=== PATIENT | female | born 1965 | race Caucasian/White ===

== ENCOUNTER 2018-04-14 09:58 | Day surgery (SDC) | payer OTHER ==
[~2018-04-14] VITALS: Ht 157.5 cm; Wt 79.8 kg
[2018-04-14] MEDS ORDERED: MIDAZOLAM 2 MG/2 ML VIAL ONE (11:54)
[2018-04-14] MEDS ORDERED: LIDOCAINE 2% 100 MG/5 ML UJET TP ONE (11:54)
[2018-04-14] MEDS ORDERED: fentaNYL 0.05 MG/ML VIAL ONE (11:54)
== END 2018-04-14 13:09 | disposition home or self-care (01) ==
LOC: MDS 09:58 → MMU 09:58 → MDS 13:09
PROVIDERS: ATTEND Internal Medicine Gastroenterology
DX: Z12.11 Encounter for screening for malignant neoplasm of colon (principal); D12.3 Benign neoplasm of transverse colon; I10 Essential (primary) hypertension; E78.00 Pure hypercholesterolemia, unspecified; E11.9 Type 2 diabetes mellitus without complications; E66.9 Obesity, unspecified; Z98.890 Other specified postprocedural states; Z90.710 Acquired absence of both cervix and uterus; Z79.899 Other long term (current) drug therapy; Z79.84 Long term (current) use of oral hypoglycemic drugs; Z68.32 Body mass index [BMI] 32.0-32.9, adult
CPT/HCPCS: 45385; 82948; J3010; J2250

== ENCOUNTER 2019-11-29 08:41 | Emergency (ER) | payer OTHER ==
[~2019-11-29] VITALS: Ht 157.5 cm; Wt 77.6 kg
[2019-11-29 08:47] VITALS: BP 161/80
--- NOTE | 2019-11-29 09:10 | NUR ---
C/O L SIDED FACIAL NUMBNESS X1 DAY ACCOMPANIED BY HEADACHE. DENIES PAIN. BILATERAL STRENGTH NOTED TO BUE/BLE. PARALYSIS NOTED TO L SIDE OF FACE. DECREASED NASOLABIAL FOLD NOTED TO L SIDE OF FACE. PUPILS PERRL. PT ALERT AND AWAKE, SPEECH IS CLEAR, PT AMBULATORY WITH STEADY GAIT. HX: DM RX: NONE
--- NOTE | 2019-11-29 09:11 | NUR ---
DR KRUSE AT BEDSIDE
[2019-11-29 09:22] VITALS: BP 144/87
--- NOTE | 2019-11-29 09:22 | NUR ---
Patient discharged with v/s stable. Written and verbal after care instructions given and explained REGARDING BELLS PALSY. Patient alert, oriented and verbalized understanding of instructions. Ambulatory with steady gait. All questions addressed prior to discharge. ID band removed. Patient advised to follow up with PMD. Rx of PREDNISONE AND VALACYCLOVIR HYDROCHLORIDE given. Patient educated on indication of medication including possible reaction and side effects. Opportunity to ask questions provided and answered. PT ISNTRUCTED THAT SHE CAN USE OTC EYE DROPS FOR EYE DRYNESS
== END 2019-11-29 09:22 | disposition home or self-care (01) ==
LOC: MED 08:41
DX: G51.0 Bell's palsy (principal); E11.9 Type 2 diabetes mellitus without complications; R03.0 Elevated blood-pressure reading, without diagnosis of hypertension; Z88.0 Allergy status to penicillin; Z90.49 Acquired absence of other specified parts of digestive tract
CPT/HCPCS: 99283

== ENCOUNTER 2021-06-13 20:11 | Inpatient (IN) | payer OTHER ==
[~2021-06-13] VITALS: Ht 157.5 cm; Wt 65.4 kg
[2021-06-13 20:18] VITALS: BP 123/73
--- NOTE | 2021-06-13 20:20 | NUR ---
PT BIBA FROM SNF FOR HYPOGLYCEMIA. PT BS WAS 36 ON SCENE. PT NOW AT BS OF 131. 0/10 PAIN. PATIENT ARRIVED WITH A PARSONS. PATIENT WOUNDS-- CHARTED AND TAKEN A PICTURE. PATIENT CAME IN FOR LOW BG ON SEEN 36. PATIENT LUNG SOUNDS HAS CRACKLES, DIMINISHED. PATIENT WAS AT [facility] AT THE END OF MAY. PATIENT ALSO HAD SURGICAL PROCEDURE IN . AAOX4-- BUT AT TIMES CAN GET CONFUSED. PMH- DM, ARF ALLERGIES: PENICILLINS
[2021-06-13] MEDS ORDERED: NACL 0.9% 1,000 ML IV SCH (20:35)
[2021-06-13] MEDS ORDERED: AZITHROMYCIN 500 MG in DEXTROSE 5% 250 ML IV ONE (20:35)
[2021-06-13] MEDS ORDERED: cefTRIAXone 1,000 MG in DEXT 5% MINI-BAG PLUS 50 ML IV ONE (20:35)
[2021-06-13] MEDS ORDERED: cefTRIAXone 1,000 MG VIAL ONE (20:51)
[2021-06-13] MEDS ORDERED: AZITHROMYCIN 500 MG INJ VIAL IV ONE (21:04)
--- NOTE | 2021-06-13 21:19 | NUR ---
XRAY AT BEDSIDE
[2021-06-13 21:51] LABS: EOSINOPHILS % (AUTO) 0.1 % (0.0-4.0); HEMATOCRIT 30.7 % (36-48); HEMOGLOBIN 10.2 g/dL (12.0-16.0); LYMPHOCYTES % (AUTO) 5.6 % (20.5-51.1); MEAN CORPUSCULAR HEMOGLOBIN 29 pg (27-31); MEAN CORPUSCULAR HGB CONC 33 g/dL (33-37); MEAN CORPUSCULAR VOLUME 88.6 fL (80-94); MONOCYTES # (AUTO) 1.6 K/uL (0.8-1.0); MONOCYTES % (AUTO) 8.5 % (1.7-9.3); NEUTROPHILS # (AUTO) 15.7 K/uL (1.8-7.7); NEUTROPHILS % (AUTO) 85.8 % (42.2-75.2); PLATELET COUNT (AUTO) 286 K/uL (140-450); RED BLOOD CELL COUNT(AUTO) 3.46 MIL/uL (4.20-5.40); RED CELL DISTRIBUTION WIDTH 14.2 % (11.6-13.7); WHITE BLOOD COUNT (AUTO) 18.3 K/uL (4.8-10.8)
[2021-06-13 22:12] LABS: ALBUMIN 2.8 g/dL (3.4-5.0); ANION GAP 14.4 (8-16); CARBON DIOXIDE 25.2 mmol/L (21-32); CREATININE 2.4 mg/dL (0.6-1.3); POTASSIUM 4.6 mmol/L (3.5-5.1); TOTAL BILIRUBIN 0.6 mg/dL (0.0-1.0)
[2021-06-13 22:13] LABS: BILIRUBIN,URINE NEGATIVE (NEGATIVE); BLOOD, URINE 3+ (NEGATIVE); COLOR,URINE YELLOW (YELLOW); LEUKOCYTE ESTERASE ,URINE 2+ (NEGATIVE); NITRITE, URINE POSITIVE (NEGATIVE); UGLUCOSE 2+ (NEGATIVE)
--- NOTE | 2021-06-13 22:18 | NUR ---
LAB REPORTED BUN 90 AND SODIUM 121
[2021-06-13 22:19] LABS: APPEARANCE,URINE CLOUDY (CLEAR)
--- NOTE | 2021-06-13 22:30 | NUR ---
ASSISTED ERMD WITH CENTRAL LINE. PATIENT TOLERATED WELL. SAFETY MEASURES ARE IN PLACE, WILL CONTINUE TO MONITOR PATIENT.
[2021-06-13 22:41] LABS: CKMB RELATIVE INDEX 1.3 (0.0-2.5); CREATINE KINASE MB 9.7 ng/mL (0-3.6)
--- NOTE | 2021-06-13 23:08 | NUR ---
PROVIDED PATIENT WITH JUICES AND CRACKERS
--- NOTE | 2021-06-13 23:22 | NUR ---
Patient noted to have existing wounds upon arrival to ER. Photos taken of wound and placed in chart. Wound covered with dressing. Physician informed.
--- NOTE | 2021-06-13 23:30 | NUR ---
PATIENT TO CT VIA [facility]
--- NOTE | 2021-06-13 23:42 | NUR ---
notified ERMD of decrease BP of 80s/40s. ERMD to move the cuffs around and wait another 5minutes to reassess BP
--- NOTE | 2021-06-13 23:55 | NUR ---
reported low BP of 89/34 to ERMD. physician to see patient, and start central line
[2021-06-14] MEDS ORDERED: NOREPINEPHRINE 4 MG in DEXTROSE 5% 250 ML IV ONE (00:10)
[2021-06-14] MEDS ORDERED: NOREPINEPHRINE 4 MG/4 ML VIAL IV ONE (00:26)
[2021-06-14] MEDS ORDERED: ONDANSETRON 4 MG/2 ML VIAL IVP PRN (01:25)
[2021-06-14] MEDS ORDERED: ACETAMINOPHEN 325 MG TAB PO PRN (01:25)
--- NOTE | 2021-06-14 01:25 | NUR ---
XRAY AT BEDSIDE
--- NOTE | 2021-06-14 01:35 | NUR ---
PERICARE DONE FOR PATIENT, PATIENT HAD A PING PONG BALL SIZE POOP- SEMI HARD. REPOSITIONED PATIENT ON LEFT SIDE. SAFETY MEASURES ARE IN PLACE, WILL CONTINUE TO MONITOR PATIENT
[2021-06-14] MEDS: NACL 0.9% 1,000 ML IV SCH ×3 (02:35→19:37)
--- NOTE | 2021-06-14 03:03 | NUR ---
REPOSITIONED PATIENT SUPINE PER PATIENT REQUEST. SAFETY MEASURES ARE IN PLACE, WILL CONTINUE TO MONITOR PATIENT
[2021-06-14 04:36] LABS: RBC,URINE 0-5 /HPF (0-5)
--- NOTE | 2021-06-14 05:00 | NUR ---
REPOSITIONED PATIENT ON RIGHT SIDE ON LOW FOWLERS. SAFETY MEASURES ARE IN PLACE, WILL CONTINUE TO MONITOR PATIENT
--- NOTE | 2021-06-14 07:00 | NUR ---
REFER TO IV SPREADSHEET FOR VS
--- NOTE | 2021-06-14 07:30 | NUR ---
Patient repositioned to left side in semi-fowlers. desk monitor in place. VSS; respirations even/unlabored. Bed locked in lowest position, side rails x2 for pt safety.
--- NOTE | 2021-06-14 07:40 | NUR ---
emptied mckeon catheter of 3000ml
--- NOTE | 2021-06-14 07:45 | NUR ---
Pt report given to Romulo LUU. Transfer of care at this time.
--- NOTE | 2021-06-14 07:45 | NUR ---
Report and continuation of care received from JUS Iraheta.
--- NOTE | 2021-06-14 08:45 | NUR ---
Patient resting in low-fowlers position; Levophed infusion continued @ 2mcg, VSS; respirations even/unlabored. Bed locked in lowest position, side rails x 2 for pt safety, call light in reach.
--- NOTE | 2021-06-14 08:51 | NUR ---
PATIENT HAS BEEN SCREENED AND CATEGORIZED MODERATE NUTRITION RISK. PATIENT WILL BE SEEN WITHIN 3-5 DAYS OF ADMISSION. 06/16/2021-06/18/[address] Addendum: 06/15/21 at [address] PATIENT HAS BEEN RESCREENED AND RE-CATEGORIZED HIGH NUTRITION RISK. PATIENT WILL BE SEEN WITHIN 1-2 DAYS OF ADMISSION. NUTRITION CONSULT AND REFERRAL RECEIVED ON 06/14/21 FOR PRESSURE ULCER, WOUNDS, AND DIABETES EDUCATION. 06/14/2021-06/15/[address]
[2021-06-14] MEDS ORDERED: NACL 0.9% 1,000 ML IV SCH (09:05)
[2021-06-14] MEDS ORDERED: CEFEPIME 1,000 MG in DEXTROSE 5% 100 ML IV SCH ×5 (09:08→21:00)
[2021-06-14] MEDS ORDERED: CEFEPIME 1,000 MG VIAL ONE ×3 (09:36→21:57)
--- NOTE | 2021-06-14 09:50 | NUR ---
Patient resting comfortably with both eyes open in semi-fowlers position. Manjeet () at bedside at this time. quality assurance monitor body in remains in place. Bed locked in lowest position, side rails x 2, call light in reach.
[2021-06-14] MEDS: ENOXAPARIN 30 MG/0.3 ML SYR SUBQ SCH (09:56)
--- NOTE | 2021-06-14 10:01 | NUR ---
NS 0.9% BOLUS initiated @ 0930 to IV R Forearm
[2021-06-14] MEDS ORDERED: DEXTROSE 50% 50 ML SYR IVP PRN (10:10)
[2021-06-14] MEDS ORDERED: INSULIN LISPRO SLIDING SCALE 100 UNITS/ML VIAL SUBQ PRN (10:10)
--- NOTE | 2021-06-14 11:21 | NUR ---
PATIENT REPOSITIONED TO LEFT SIDE IN SEMI-FOWLERS POSITION. CARDIAC MONTIOR REMAINS IN PLACE; VSS, RESPIRATIONS EVEN/UNLABORED. LEVOPHED CONTINUED @ 2MCG.
[2021-06-14] MEDS: BLOOD GLUCOSE MONITORING 1 DEV DEV FS SCH ×3 (11:50→21:00)
--- NOTE | 2021-06-14 13:30 | NUR ---
Levophed paused at this time to test patient tolerance. BP 116/56, HR 110, SpO2 100%, RR 16.
--- NOTE | 2021-06-14 13:45 | NUR ---
Patient V/S: BP 98/49, HR 118, SpO2 99% RR 14. Patient resumed on Levophed drip @ 2mcg/hr.
--- NOTE | 2021-06-14 13:58 | NUR ---
Call light answered; pt states arm pain. Patient repositioned onto right side in semi-fowlers position. ekg monitor tech and Levophed drip continued @ 2mcg/hr. VSS; respirations even/unlabored. Patient denies any pain or nausea. Oral temperature 98.7. Bed locked in lowest position, side rails x 2, call light in reach.
--- NOTE | 2021-06-14 14:03 | NUR ---
1525 mL yellow urine collected from Prasad bag Addendum: 06/14/21 at 1415 by ARPAN Urine output since last discard @ 0740; ~254mL/hour.
--- NOTE | 2021-06-14 14:15 | NUR ---
US tech at bedside for Kidney US
--- NOTE | 2021-06-14 14:40 | NUR ---
Shefali valentino in [facility] - 06/14/21 [facility] 14[address] [facility] Shah is evaluating patient at bedside.
--- NOTE | 2021-06-14 14:40 | NUR ---
Dr. Gil is evaluating patient at bedside
--- NOTE | 2021-06-14 14:45 | NUR ---
80mL urine removed from Prasad bag for Urine/Pro/Creat Ratio sample. Walked to lab and handed to CPT. Charly
--- NOTE | 2021-06-14 14:50 | NUR ---
Patient resting with both eyes closed; pvc monitor and Levophed continued @ 2mcg. VSS; respirations even/unlabored no distress noted. Bed locked in lowest position, side rails x 1, call light in reach. Will continue to monitor.
[2021-06-14 15:03] LABS: URINE TOTAL PROTEIN 36.3 mg/dL (0-12)
--- NOTE | 2021-06-14 15:39 | NUR ---
Manjeet () is at bedside.
--- NOTE | 2021-06-14 15:45 | NUR ---
Levophed drip decreased from 2mcg/hr to 1mcg/hr. 1545 VSS: BP 142/62, HR 114, SpO2 99, RR 17.
--- NOTE | 2021-06-14 15:57 | NUR ---
Patient assisted with repositioning. Patient repositioned onto left side with pillows and 2 sheets propped. All needs met. threat monitoring analyst remains in place. VSS; respirations even/unlabored; no distress noted. Bed locked in lowest position, side rails x 2, call light in reach.
--- NOTE | 2021-06-14 16:00 | NUR ---
Patient tolerated decreased Levophed drip well. Resumed at 1mcg/hr at this time. BP 112/51, HR 119 SpO2 99% RR 20 even/unlabored. Bed locked in lowest position, side rails x 2, call light in reach. remains at bedside.
--- NOTE | 2021-06-14 16:30 | NUR ---
Oral care provided. All pt needs met.
--- NOTE | 2021-06-14 17:25 | NUR ---
1725 NS 0.9% order delayed; maintenance fluids running with VTBI ~150mL.
--- NOTE | 2021-06-14 17:33 | NUR ---
Patient assisted with repositioning. Patient repositioned onto Right side side with pillows and 2 sheets propped. All needs met. classifier remains in place. VSS; respirations even/unlabored; no distress noted. Bed locked in lowest position, side rails x 2, call light in reach.
--- NOTE | 2021-06-14 17:34 | NUR ---
Patient states back pain 06/13 and is requesting medication at this time.
--- NOTE | 2021-06-14 17:39 | NUR ---
PT REQUESTING PCP TO BE NOTIFIED OF ADMISSION: DR. CANAS [facility] [place]. FAMILY TO BE NOTIFIED OF NEW ROOM: LUDY CAPUTO Addendum: 06/14/21 at 1748 by MED Patient states PCP is Dr. Canas of "[facility] off [facility] the [facility]." Attempted to search for PCP and unable to locate information at this time.
[2021-06-14] MEDS: MORPHINE SULFATE 2 MG/ML SYR IVP PRN (17:50)
--- NOTE | 2021-06-14 17:50 | NUR ---
Pt reports minor relief to pain. /, denies nausea. All pt needs met. RR 12 even/unlabored
[2021-06-14] MEDS ORDERED: HYDR200T5 PO (18:05)
[2021-06-14] MEDS ORDERED: HYDR-39 PO (18:05)
[2021-06-14] MEDS ORDERED: HYDR-5191 PO (18:05)
[2021-06-14] MEDS ORDERED: METF-350 PO (18:05)
[2021-06-14] MEDS ORDERED: GABA100C PO (18:05)
[2021-06-14] MEDS ORDERED: ROSU10TA1 PO (18:05)
[2021-06-14] MEDS ORDERED: PIOG45TA PO (18:05)
--- NOTE | 2021-06-14 18:06 | NUR ---
Dinner mealtray at bedside. Patient able to swallow without difficulty. Completing meal at this time. All needs met.
--- NOTE | 2021-06-14 19:29 | NUR ---
Report given to radha Mohan RN.
--- NOTE | 2021-06-14 19:30 | NUR ---
RECEIVED HANDOFF FROM JUS GOMEZ. ASSUMED CARE AT THIS TIME. PT REPOSITIONED AT THIS TIME. LEVOPHED DRIP AT 1MCG AND NS IVF AT 125ML/HR. VSS AT THIS TIME. WILL CONTINUE TO MONITOR.
--- NOTE | 2021-06-14 20:30 | NUR ---
PT SEEN WITH EYES CLOSED. VSS. LEVOPHED IVF AT 1MCG/HR AND 125CC/HR NS CONTINUES TO INFUSE. ALL NEEDS MET AT THIS TIME. WILL CONTINUE TO MONITOR.
--- NOTE | 2021-06-14 20:45 | NUR ---
FOR VITALS SIGNS TREND SEE IV SPREADSHEET.
[2021-06-14 21:00] VITALS: BP 138/68
--- NOTE | 2021-06-14 21:00 | NUR ---
RECEIVED PATIENT FROM AM SHIFT NURSE FOR CONTINUITY OF CARE. ALERT AND ABLE TO MAKE NEEDS KNOWN. RESPIRATIONS EVEN, UNLABORED. NO S/S RESPIRATORY DISTRESS. O2SAT 97%. S1/S2 AUSCULTATED. NO C/O PAIN. SKIN ASSESSMENT COMPLETED. SACRAL WOUND NOTED. HEALED ABDOMINAL/BACK SCAR NOTED. RIGHT IJ TRIPLE LUMEN ACCESS NOTED WITH DRESSING CLEAN/DRY/INTACT, INFUSING FLUIDS WELL. SALINE LOCK TO RIGHT AC 20G PATENT/INTACT. SALINE LOCK TO LEFT HAND 20G PATENT/INTACT. ABDOMEN SOFT, NONTENDER, NONDISTENDED. BOWEL SOUNDS ACTIVE x4 QUADRANTS. PARSONS CATHETER PATENT WITH CLEAR YELLOW URINE DRAINING TO GRAVITY. MRSA SCREEN COMPLETED. PATIENT ORIENTED TO ROOM/STAFF AND CALL LIGHT. PLAN OF CARE DISCUSSED. SAFETY PRECAUTIONS IN PLACE. CALL LIGHT IN REACH.
--- NOTE | 2021-06-14 21:01 | NUR ---
ACCUCHECK 106. NO COVERAGE NEEDED.
--- NOTE | 2021-06-14 21:10 | NUR ---
EMPTIED PARSONS CATHETER, 1000CC OF YELLOW URINE NOTED.
--- NOTE | 2021-06-14 21:15 | NUR ---
Patient will be admitted to care of DR. ARREGUIN . Admited to ICU. Will go to room 1. Belongings list completed. Report to JUS VELEZ
[2021-06-14 22:00] VITALS: BP 125/64
[2021-06-14 23:00] VITALS: BP 123/87
--- NOTE | 2021-06-14 23:48 | NUR ---
PATIENT WATCHING TV. NO S/S RESPIRATORY DISTRESS. NO C/O PAIN. PATIENT IS CLEAN/DRY. CALL LIGHT IN REACH.
[2021-06-15] VITALS (21 sets, daily range): BP systolic 115–142; BP diastolic 55–73
[2021-06-15] MEDS: NACL 0.9% 1,000 ML IV SCH ×3 (01:22→19:18)
--- NOTE | 2021-06-15 01:40 | NUR ---
INCONTINENT CARE RENDERED.
--- NOTE | 2021-06-15 03:19 | NUR ---
PATIENT NOT ASLEEP. ENCOURAGED ROM IN BED TOLERATED TO MAINTAIN MOBILITY. PATIENT RECEPTIVE TO TEACHING.
--- NOTE | 2021-06-15 05:32 | NUR ---
PATIENT IS WATCHING TV. NO S/S RESPIRATORY DISTRESS. NO C/O PAIN. PATIENT IS CLEAN/DRY. CALL LIGHT IN REACH.
[2021-06-15] MEDS: BLOOD GLUCOSE MONITORING 1 DEV DEV FS SCH ×4 (06:41→21:00)
[2021-06-15 06:46] LABS: BASOPHILS # (AUTO) 0.1 K/uL (0.00-0.22); BASOPHILS % (AUTO) 0.6 % (0.0-2.0); EOSINOPHILS % (AUTO) 0.5 % (0.0-4.0); LYMPHOCYTES # (AUTO) 1.3 K/uL (2.5-16.5); LYMPHOCYTES % (AUTO) 15.1 % (20.5-51.1); MEAN CORPUSCULAR HEMOGLOBIN 30 pg (27-31); MEAN CORPUSCULAR HGB CONC 34 g/dL (33-37); MEAN CORPUSCULAR VOLUME 89.8 fL (80-94); MONOCYTES # (AUTO) 1.2 K/uL (0.8-1.0); MONOCYTES % (AUTO) 13.1 % (1.7-9.3); NEUTROPHILS # (AUTO) 6.2 K/uL (1.8-7.7); NEUTROPHILS % (AUTO) 70.7 % (42.2-75.2); PLATELET COUNT (AUTO) 246 K/uL (140-450); RED BLOOD CELL COUNT(AUTO) 2.83 MIL/uL (4.20-5.40); RED CELL DISTRIBUTION WIDTH 14.1 % (11.6-13.7); WHITE BLOOD COUNT (AUTO) 8.8 K/uL (4.8-10.8)
[2021-06-15 07:04] LABS: HEMOGLOBIN 8.6 g/dL (12.0-16.0)
[2021-06-15 07:05] LABS: HEMATOCRIT 25.4 % (36-48)
[2021-06-15 07:12] LABS: ALBUMIN 2.3 g/dL (3.4-5.0); CARBON DIOXIDE 24.5 mmol/L (21-32); CREATININE 0.8 mg/dL (0.6-1.3); MAGNESIUM 1.5 mg/dL (1.8-2.4); POTASSIUM 3.5 mmol/L (3.5-5.1); TOTAL BILIRUBIN 0.6 mg/dL (0.0-1.0)
--- NOTE | 2021-06-15 07:27 | NUR ---
ENDORSED PATIENT TO AM SHIFT NURSE FOR CONTINUITY OF CARE.
--- NOTE | 2021-06-15 07:30 | NUR ---
RECEIVED PATIENT FROM REMOTE INPATIENT CODER NURSE FOR CONTINUITY OF CARE. ALERT AND ABLE TO MAKE NEEDS KNOWN. RESPIRATIONS EVEN, UNLABORED. NO S/S RESPIRATORY DISTRESS. O2SAT 97%. SKIN IS WARM, DRY, AND NON-INTACT. SACRAL WOUND NOTED. HEALED ABDOMINAL/BACK SCAR NOTED. RIGHT IJ TRIPLE LUMEN ACCESS NOTED WITH DRESSING CLEAN/DRY/INTACT, INFUSING FLUIDS WELL. HAS RIGHT AC 20G PATENT/INTACT AND LEFT HAND 20G PATENT/INTACT. BOTH SALINE LOCKED. PARSONS CATHETER PATENT WITH CLEAR YELLOW URINE DRAINING TO GRAVITY. PATIENT ORIENTED TO ROOM/STAFF AND CALL LIGHT. PLAN OF CARE DISCUSSED. SAFETY PRECAUTIONS IN PLACE. CALL LIGHT IN REACH
[2021-06-15] MEDS: ENOXAPARIN 30 MG/0.3 ML SYR SUBQ SCH (09:19)
[2021-06-15] MEDS: CEFEPIME 2,000 MG in DEXTROSE 5% 100 ML IV SCH ×2 (09:23→20:56)
--- NOTE | 2021-06-15 09:30 | NUR ---
ALL SCHEDULED MEDS GIVEN. PT IS STABLE. NO DISTRESS NOTED. WILL CONTINUE TO MONITOR.
[2021-06-15] MEDS ORDERED: MAG SULF 2000 MG/WATER PREMIX 50 ML IV SCH (10:00)
[2021-06-15] MEDS: MORPHINE SULFATE 2 MG/ML SYR IVP PRN (10:58)
--- NOTE | 2021-06-15 10:58 | NUR ---
PATIENT COMPLAINED OF RIGHT LEG PAIN 6. ADMINISTERED PRN PAIN MEDICATION PER MD ORDERED
--- NOTE | 2021-06-15 12:14 | NUR ---
BLOOD GLUCOSE CHECK WAS 90. NO INSULIN COVERAGE NEEDED.
--- NOTE | 2021-06-15 13:10 | NUR ---
CHANGED PATIENT'S PADS. CHANGED AND CLEANED PATIENT'S SACRAL WOUND. NO DRAINAGE WAS NOTED. DRESSING C/D/I
--- NOTE | 2021-06-15 13:25 | NUR ---
06/15/21 RD INITIAL ASSESSMENT COMPLETED PLEASE REFER TO NUTRITION ASSESSMENT UNDER CARE ACTIVITY FOR ESTIMATED NUTRITIONAL NEEDS. RD RECOMMENDATIONS: 1. CONTINUE CCHO 60 GM DIET TOLERATED. 2. RD WILL F/U 3-5 DAYS; MODERATE RISK. FELICITAS JIMÉNEZ, RD
--- NOTE | 2021-06-15 14:10 | NUR ---
CHANGED PATIENT'S PADS. CHANGED AND CLEANED PATIENT'S SACRAL WOUND. NO DRAINAGE WAS NOTED. DRESSING C/D/I Addendum: 06/15/21 at 1658 by Randall Gutierres RN RN CHANGED PATIENT AT 1310 NOT 1410.
--- NOTE | 2021-06-15 16:15 | NUR ---
CHECKED ON PATIENT. PATIENT IS ASLEEP. NOTED CHEST RISE AND FALL. NO DISTRESS NOTED. WILL CONTINUE TO MONITOR.
--- NOTE | 2021-06-15 17:30 | NUR ---
BLOOD SUGAR CHECK WAS 81. NO INSULIN COVERAGE NEEDED.
--- NOTE | 2021-06-15 19:45 | NUR ---
ENDORSED TO LOG HOOKER NURSE FOR CONTINUITY OF CARE. PT IS STABLE.
[2021-06-16 01:19] VITALS: BP 105/68
[2021-06-16] MEDS: NACL 0.9% 1,000 ML IV SCH (04:50)
[2021-06-16 06:27] VITALS: BP 102/66
[2021-06-16 07:29] LABS: BASOPHILS % (AUTO) 0.6 % (0.0-2.0); EOSINOPHILS # (AUTO) 0.1 K/uL (0-0.4); EOSINOPHILS % (AUTO) 0.9 % (0.0-4.0); HEMATOCRIT 24.7 % (36-48); HEMOGLOBIN 8.5 g/dL (12.0-16.0); LYMPHOCYTES # (AUTO) 1.2 K/uL (2.5-16.5); LYMPHOCYTES % (AUTO) 15.6 % (20.5-51.1); MEAN CORPUSCULAR HEMOGLOBIN 31 pg (27-31); MEAN CORPUSCULAR HGB CONC 34 g/dL (33-37); MEAN CORPUSCULAR VOLUME 89.4 fL (80-94); MONOCYTES # (AUTO) 0.8 K/uL (0.8-1.0); MONOCYTES % (AUTO) 10.5 % (1.7-9.3); NEUTROPHILS # (AUTO) 5.5 K/uL (1.8-7.7); NEUTROPHILS % (AUTO) 72.4 % (42.2-75.2); PLATELET COUNT (AUTO) 268 K/uL (140-450); RED BLOOD CELL COUNT(AUTO) 2.77 MIL/uL (4.20-5.40); RED CELL DISTRIBUTION WIDTH 13.7 % (11.6-13.7); WHITE BLOOD COUNT (AUTO) 7.6 K/uL (4.8-10.8)
--- NOTE | 2021-06-16 07:38 | NUR ---
RECEIVED CHANGE OF SHIFT REPORT FROM NIGHT NURSE AT BEDSIDE FOR CONTINUITY OF CARE. REVIEWED AND WILL CONTINUE WITH POC. PT CONDITION IS STABLE. PT ASLEEP DURING BEDSIDE REPORT. NURSE REPORTS PT IS AA&OX3 WHEN AWAKE. PT IS ON RA BREATHING NORMAL AND UNLABORED, PT HAS PARSONS IN PLACE CURRENTLY WITH 100 ML OF OUTPUT. PT HAS R-TRIPLE LUMEN IJ. PT ALSO HAS SACRAL WOUND COVERED BY DRESSING. DRESSING IS DRY AND INTACT. WILL CONTINUE TO MONITOR.
[2021-06-16 08:00] VITALS: BP 148/57
[2021-06-16] MEDS: BLOOD GLUCOSE MONITORING 1 DEV DEV FS SCH ×4 (08:19→21:14)
[2021-06-16] MEDS: ENOXAPARIN 30 MG/0.3 ML SYR SUBQ SCH (08:23)
[2021-06-16] MEDS: CEFEPIME 2,000 MG in DEXTROSE 5% 100 ML IV SCH ×2 (08:27→21:13)
[2021-06-16 08:30] LABS: ANION GAP 17.6 (8-16); CARBON DIOXIDE 19.7 mmol/L (21-32); CREATININE 0.6 mg/dL (0.6-1.3); POTASSIUM 3.3 mmol/L (3.5-5.1)
--- NOTE | 2021-06-16 08:58 | NUR ---
POTASSIUM LEVEL 3.3. NO STANDING ORDERS FOR POTASSIUM REPLACEMENT. MD NOTIFIED AWAITING MD ORDERS.
[2021-06-16] MEDS ORDERED: POTASSIUM CHLORIDE 10 MEQ TABER PO SCH (09:30)
--- NOTE | 2021-06-16 09:35 | NUR ---
PT CONDITION IS STABLE WOUND CARE NURSE AT BEDSIDE. WILL CONTINUE TO MONITOR.
[2021-06-16 10:00] VITALS: BP 132/64
[2021-06-16] MEDS: MORPHINE SULFATE 2 MG/ML SYR IVP PRN (10:05)
--- NOTE | 2021-06-16 10:05 | NUR ---
ADMINISTERED MORPHINE PRN FOR LEG PAIN 06/13. ALSO ADMINISTERED K-DUR FOR POTASSIUM LEVEL OF 3.[address] WILD. WILL CONTINUE TO MONITOR.
--- NOTE | 2021-06-16 11:45 | NUR ---
PT CONDITION IS STABLE. DENIES PAIN OR DISCOMFORT. WILL CONTINUE TO MONITOR.
--- NOTE | 2021-06-16 11:51 | NUR ---
WOUND CARE EVALUATION NOTE: REASON FOR EVALUATION: PRESSURE INJURY AND SURGICAL WOUNDS SKIN ASSESSMENT DONE WITH THIS 55 Y/O PT ADMITTED TO [facility] WITH INITIAL DX OF HYPOGLYCEMIA. PAST MEDICAL HX INCLUDES HTN, DM AND RECENT BACK SURGERY. PT. ADMITTED WITH SACRALCOCCYX PRESSURE INJURY UN-STAGEABLE. ALL ABOVE INFORMATION OBTAINED FROM ADMISSION H&P AND PT.PT. WITH MID ABDOMINAL SURGICAL WOUND, PER PT SURGERY BACK TO MAY 2021 AND SURGEON PLACED SPACERS TO LUMBAR AREA. PT IS AAX4. PT IS AWAKE. SKIN IS WARM AND DRY, BLE NO HAIR GROWTH, NO EDEMA TO BILATERAL LOWER LEGS. BILATERAL DORSAL PEDAL PULSES PRESENT AND NORMAL. PLAN OF CARE DISCUSSED WITH PRIMARY RN AND PT. ASSIST PHYSICAL THERAPY TO PLACE ORTHOR FIX BACK BRACE TO LUMBER AREA, PT. ABLE TO TURN AND REPOSITION. POC DISCUSSED WITH PT. FOR WEIGHT SHIFTING AND REPOSITION Q2H. PT. VERBALIZING UNDERSTANDING. INTEGUMENTARY: -MID ABDOMINAL AND POSTERIOR LUMBAR AREAS SURGICAL SITES WOUND HEALED SCARS NO S/SOF INFECTIONS. -SACRALCOCCYX PRESSURE INJURY UN-STAGEABLE 6X7X0.1CM WOUND BED 100% MOIST YELLOW AND LIGHT BROWN SLOUGH TISSUE, NO ODOR, NETO WOUND SKIN DRY, SURROUNDING SKIN RED INTACT. RECOMMENDATIONS: -PLEASE KEEP MID ABDOMINAL AND POSTERIOR LUMBAR AREAS SURGICAL SITES DRY AND CLEAN AY ALL TIMES -CLEANSE SACRALCOCCYX WITH NS AND GAUZE, PAT DRY, APPLY THERAHONEY GEL TO WOUND BED, AND COVER WITH COMPOSITE DRESSING Q DAY AND PRN WITH SOILING. -OFFLOAD BILATERAL HEELS BY PLACING PILLOWS UNDER CALVES UNLESS OTHERWISE CONTRAINDICATED -PRESSURE REDISTRIBUTION SURFACE THERAPY -TURN AND REPOSITION Q2H, OFFLOAD SACRALCOCCYX BY TURNING RIGHT AND LEFT -CONTINUE TO FOLLOW RD RECOMMENDATIONS ALL ABOVE RECOMMENDATIONS DISCUSSED WITH PRIMARY RN PLEASE CONTACT WOUND CARE NURSE FOR ANY QUESTION AND CHANGE OF WOUND CONDITION.
[2021-06-16] MEDS: THERAHONEY GEL 42.5 GM TP SCH (13:25)
--- NOTE | 2021-06-16 13:32 | NUR ---
PT CONDITION IS STABLE. PT IS CURRENTLY SLEEPING WITH IVF RUNNING PER MD ORDER. BREATHING IS NORMAL AND UNLABORED. WILL CONTINUE TO MONITOR.
--- NOTE | 2021-06-16 15:15 | NUR ---
PT CONDITION IS STABLE. PT IS AWAKE AND WATCHING TV. PT DENIES PAIN OR DISCOMFORT AT THIS TIME. WILL CONTINUE TO MONITOR.
--- NOTE | 2021-06-16 17:23 | NUR ---
PT CONDITION IS STABLE. EQUAL OPPORTUNITY ASSISTANT HELPED PROVIDE SPONGE BATH AND DRESSING WAS DRY AND INTACT. PT DENIES PAIN AT THIS TIME. PT HAS IVF RUNNING PER MD ORDER AND HAS PARSONS IN PLACE. ON RA WITH NORMAL UNLABORED BREATHING. WILL CONTINUE TO MONITOR.
--- NOTE | 2021-06-16 19:40 | NUR ---
GAVE CHANGE OF SHIFT REPORT TO NIGHT NURSE AT BEDSIDE FOR CONTINUITY OF CARE. DISCUSSED POC. PT CONDITION IS STABLE.
--- NOTE | 2021-06-16 19:40 | NUR ---
RECEIVED REPORT FROM ANGELINE LUU FOR CONTINUITY OF CARE. PT SITTING UP AAOX4. NO APPARENT S/S OF ACUTE DISTRESS. BREATHING EVEN AND UNLABORED ON RA WITH O2 SAT OF 99%. R IJ TL INTACT/PATENT. PARSONS CATH INTACT/PATENT WITH YELLOW URINE DRAINING TO GRAVITY. NO C/O CP, SOB OR PAIN. POC AND WHITE COMMUNICATION BOARD UPDATED. BED IN LOW/LOCKED POSITION. CALL LIGHT WITHIN REACH. PT ENCOURAGED TO CALL FOR ANY NEEDS/ASSISTANCE. WILL CONTINUE TO MONITOR.
[2021-06-16 20:00] VITALS: BP 144/56
[2021-06-17 04:00] VITALS: BP 149/78
[2021-06-17] MEDS: BLOOD GLUCOSE MONITORING 1 DEV DEV FS SCH ×4 (06:52→21:19)
--- NOTE | 2021-06-17 06:56 | NUR ---
REPORT GIVEN JONNY TO RN FOR CONTINUITY OF CARE. PT SITTING UP AAOX4. NO APPARENT S/S OF ACUTE DISTRESS. BREATHING EVEN AND UNLABORED. BED IN LOW/LOCKED POSITION. CALL LIGHT WITHIN REACH. ALL NEEDS MET AT THIS TIME.
--- NOTE | 2021-06-17 07:05 | NUR ---
RECEIVED CHANGE OF SHIFT REPORT FROM NIGHT NURSE AT BEDSIDE FOR CONTINUITY OF CARE. REVIEWED AND WILL CONTINUE WITH POC. PT ASLEEP DURING REPORT. PT IS STABLE. WHEN AWAKE PT IS AA&OX3. ON RA BREATHING UNLABORED AND NORMAL. PARSONS IN PLACE. PT HAS R-TRIPLE LUMEN IJ IN PLACE. SKIN IS WARM, DRY , AND INTACT EXCEPT SACRAL WOUND, DRESSING IN PLACE. WILL CONTINUE MONITORING.
[2021-06-17] MEDS: ENOXAPARIN 30 MG/0.3 ML SYR SUBQ SCH (08:58)
[2021-06-17] MEDS: CEFEPIME 2,000 MG in DEXTROSE 5% 100 ML IV SCH ×2 (09:00→21:14)
--- NOTE | 2021-06-17 09:30 | NUR ---
PT CONDITION IS STABLE. HELPED PT REPOSITION. PT TOLERATED WELL. WILL CONTINUE TO MONITOR.
--- NOTE | 2021-06-17 11:26 | NUR ---
PT CONDITION IS STABLE. FAMILY IS AT BEDSIDE. DENIES PAIN OR DISCOMFORT AT THIS TIME. WILL CONTINUE TO MONITOR.
[2021-06-17 12:00] VITALS: BP 147/71
[2021-06-17] MEDS: THERAHONEY GEL 42.5 GM TP SCH (12:46)
--- NOTE | 2021-06-17 13:24 | NUR ---
PT HAS FAMILY AT BEDSIDE. PT ASKED TO BE REPOSITIONED. ASSISTED IN REPOSITIONING AND CHANGED PT AFTER SOILING. DRESSING CHANGED AND THERAHONEY APPLIED. WILL CONTINUE TO MONITOR.
[2021-06-17] MEDS ORDERED: ROC2I IV (14:29)
--- NOTE | 2021-06-17 15:15 | NUR ---
PT IS CURRENTLY ASLEEP WITH FAMILY AT BEDSIDE. WILL CONTINUE TO MONITOR.
--- NOTE | 2021-06-17 17:49 | NUR ---
PT CONDITION IS STABLE. WILL CONTINUE TO MONITOR.
[2021-06-17] MEDS ORDERED: MUPIROCIN CA NASAL 2% 1GM TUBE NS SCH (18:15)
[2021-06-17] MEDS ORDERED: CHLORHEXADINE GLUC 2% CLOTH TP SCH (18:15)
--- NOTE | 2021-06-17 18:17 | NUR ---
DC PLANNING: CALLED [facility] SPOKE WITH MAR STATED PATIENT'S TOLD THEM HE WANTED TO TAKE PATIENT HOME , I CALLED PATIENT'S STATED IT'S OK TO GO BACK TO [facility] PT IS GOING BACK TO ROOM 23B ARRANGED TRANSPORT WITH [employer] TIME 10 PM I FAXED TO [facility] JUST INCASE THEY HAVE AVAILABLE TIME PLS CALL [phone]
[2021-06-17 18:37] VITALS: BP 142/61
--- NOTE | 2021-06-17 19:45 | NUR ---
GAVE CHANGE OF SHIFT REPORT TO NIGHT NURSE AT BEDSIDE FOR CONTINUITY OF CARE. REVIEWED POC. STABLE IN CONDITION.
[2021-06-17 20:00] VITALS: BP 138/68
--- NOTE | 2021-06-17 20:30 | NUR ---
RECEIVED REPORT FROM JONNY LUU FOR CONTINUITY OF CARE. PT SITTING UP AAOX4. NO APPARENT S/S OF ACUTE DISTRESS. BREATHING EVEN AND UNLABORED ON RA WITH O2 SAT OF 99%. R IJ TL INTACT/PATENT. PARSONS CATH INTACT/PATENT WITH YELLOW URINE DRAINING TO GRAVITY. POC AND WHITE COMMUNICATION BOARD UPDATED. BED IN LOW/LOCKED POSITION. CALL LIGHT WITHIN REACH. PT ENCOURAGED TO CALL FOR ANY NEEDS/ASSISTANCE. WILL CONTINUE TO PREPARE FOR DISCHARGE. WILL CONTINUE TO MONITOR.
--- NOTE | 2021-06-17 21:57 | NUR ---
2114: REPORT GIVEN TO [facility], [facility]IL[facility] LUU FOR PATIENT BEING DISCHARGE TO ROOM 35A. 2047: RECEIVED VERBAL ORDERS FROM DR FABIENNE FLANNERY TO DISCHARGE PATIENT WITH R IJ AND PARSONS CATHETER TO [facility].
--- NOTE | 2021-06-17 23:43 | NUR ---
[facility] HERE TO P/U PATIENT. PT GOING TO [facility] ROOM 35A. REPORT GIVEN. SBAR GIVEN. NO APPARENT S/S OF ACUTE DISTRESS. BREATHING EVEN AND UNLABORED. VS STABLE. R IJ IVL, INTACT/PATENT.PARSONS CATH INTACT/PATENT. ALL BELONGINGS WITH PATIENT. DISCHARGE INSTRUCTIONS GIVEN TO EMS/FACILITY AND RN. ALL NEEDS MET AT THIS TIME.
[2021-06-17 23:47] VITALS: BP 135/80
== END 2021-06-17 23:45 | DRG 720 ==
LOC: MED 20:11 → MTU 06-14 01:28 → MIC 06-14 21:00 → MTU 06-15 19:50
PROVIDERS: ADMIT Hospitalist; ATTEND Hospitalist
PROC: 02HV33Z Insertion of Infusion Device into Superior Vena Cava, Percutaneous Approach (ICD-10-PCS; principal; 2021-06-13)
PROC: B548ZZA Ultrasonography of Superior Vena Cava, Guidance (ICD-10-PCS; 2021-06-13)
DX: A41.9 Sepsis, unspecified organism (principal); R65.21 Severe sepsis with septic shock; N17.9 Acute kidney failure, unspecified; E44.0 Moderate protein-calorie malnutrition; G89.29 Other chronic pain; E11.649 Type 2 diabetes mellitus with hypoglycemia without coma; N12 Tubulo-interstitial nephritis, not specified as acute or chronic; N31.9 Neuromuscular dysfunction of bladder, unspecified; M54.9 Dorsalgia, unspecified; E87.1 Hypo-osmolality and hyponatremia; B96.20 Unspecified Escherichia coli [E. coli] as the cause of diseases classified elsewhere; I10 Essential (primary) hypertension; Z88.0 Allergy status to penicillin; Z87.01 Personal history of pneumonia (recurrent); Z98.891 History of uterine scar from previous surgery; Z83.3 Family history of diabetes mellitus; Z68.26 Body mass index [BMI] 26.0-26.9, adult
CPT/HCPCS: 36415; 70450; 71045; 76770; 80048; 80053; 81001; 82550; 82553; 82570; 82948; 83605; 83735; 83880; 83930; 83935; 84300; 84484; 85025; 85610; 85730; 87040; 87081; 87086; 93005; 96365; 96367; 96372; 97110; 97112; 97163-GP; 97530; 99285; J0456; J0692; J0696; J1650; J2270; J3475; J3490; J7060; Q0092